=== PATIENT | female | born 1985 | race Caucasian/White ===

== ENCOUNTER → 2016-08-18 | Outpatient (CLI) | payer OTHER ==
[~2016-08-18] MED LIST: IBUP600 PO; PRENCAP6 PO
--- NOTE | 2016-08-18 11:23 | RADRPT ---
EXAM DATE/TIME: 08/18/2016 10:18 [place] COMPARISON: No previous studies available for comparison. INDICATIONS : Thyromegaly. MEDICAL HISTORY : Thyromegaly. SURGICAL HISTORY : None. ENCOUNTER: Initial ACUITY: 4 - 6 months PAIN SCORE: 2/10 LOCATION: Bilateral neck MEASUREMENTS: RIGHT LOBE: 2.2 x 1.5 x 5.2 cm LEFT LOBE: 1.7 x 1.2 x 3.8 cm FINDINGS: RIGHT LOBE: Homogeneous echotexture without nodules or cysts. Vascularity is within normal limits. LEFT LOBE: Homogeneous echotexture without nodules or cysts. Vascularity is within normal limits. ISTHMUS: Normal in size without focal abnormality. Incidental note of an elongated lymph node in the lower lateral left neck measuring 2.8 x 1.0 x 0.5 c m. A fatty hilum is discernible on the axial images. CONCLUSION: Negative sonogram of the thyroid. Carmine Potter MD on August 18, 2016 at 11:20 Board Certified Radiologist. This report was verified electronically.
== END ==
LOC: HRAD 09:49
DX: J02.9 Acute pharyngitis, unspecified (principal); E01.0 Iodine-deficiency related diffuse (endemic) goiter
CPT/HCPCS: 76536